=== PATIENT | female | born 2000 | race African-American/Black ===

== ENCOUNTER 2025-03-22 16:06 | Emergency (ER) | payer SELFPAY ==
--- NOTE | 2025-03-22 16:18 | W.ED.GENAD ---
Discharge Plan Disposition Patient Disposition: Home Discharge Details Clinical Impression: Exposure to body fluid due to accidental hypodermic needlestick injury Primary Care Provider: Unknown,Unknown ED Provider: Kapil Oconnell Home Meds and New Rx's Prescriptions: No Action No Known Home Meds Discharge Instructions Instructions: Blood or body fluid exposure, Post-Exposure Prophylaxis Additional Instructions: As discussed, please follow-up with your office's [facility] administrator as they may have a dedicated protocol for needlestick injuries. However, you may follow-up with your primary care provider or our [facility] medical office to receive the results of your blood work, and to further discuss whether prophylaxis is indicated. Please return to the emergency department if you are unable to establish follow-up care, or you develop any other new or concerning symptoms such as fever, worsening pain, or rash. Stand Alone Forms: Portal Information Referrals: [facility] [Provider Group] - 2 days Discharge Data Discharge Date/Time-TO BE ENTERED AT DEPARTURE: 03/22/25 16:44 HPI General Date/Time Provider Initiated Documentation: 03/22/25 16:13. 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. No acute complaints. Patient reports that the patient that she was exposed to has had blood drawn sent to the lab already. Will obtain screening labs for HIV, hepatitis panel, and baseline metabolic function. Patient instructed to follow-up with [facility]PCP as well as her technical administrative assistant on Monday morning. Disposition: Home HPI: 24-year-old female presents for evaluation after an accidental needlestick during patient care. 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 She denies any current symptoms, denies any significant past medical history. ROS: Negative besides as mentioned above Exam: Gen: A&O NAD HEENT: NCAT, EOMI, not icteric. External ears normal. No rhinorrhea. Moist mucous membranes. Neck: Supple, full range of motion, no observable masses, No meningeal sign. Lungs: No Respiratory distress. CV: RRR, no edema. Abdomen: Soft, nondistended, No rebound tenderness. MSK: No joint swelling, no redness. Skin: No rashes, petechiae, lesions. Normal color per patient. Neuro: Normal Gait, Grossly intact. Psych: Appropriate for situation. Related Data Home Medications Medication Instructions Recorded Confirmed Unknown [No Known Home Meds] 03/22/25 03/22/25 Allergies Allergy/AdvReac Type Severity Reaction Status Date / Time No Known Allergies Allergy Unverified 03/22/25 16:22 [facility] All Active Problems (Updated 03/22/25 @ 16:33 by Kapil Oconnell MD) Exposure to body fluid due to accidental hypodermic needlestick injury (Acute) Social History Smoking/Tobacco Use Status: Never Smoking risk assessment performed?: Yes Alcohol Intake: never Substance use type: does not use
[2025-03-22 16:24] VITALS: BP 132/93; PULSE 102; RESP 14; TEMP 36.9; O2SAT 99
[2025-03-22 17:06] LABS: ALT 12 U/L (10-49); AST 17 U/L (<34); Albumin 4.6 g/dL (3.4-5.0); Alkaline Phosphatase 57 U/L (46-116); Anion Gap 8.6 mmol/L (3-11); BUN 9 mg/dL (9-23); Bilirubin, Total 1.10 mg/dL (0.2-1.2); CO2 26.4 mmol/L (20.0-31.0); Calcium 9.1 mg/dL (8.3-10.6); Chloride 104 mmol/L (98-107); Glucose 73 mg/dL (74-106); Potassium 3.6 mmol/L (3.5-5.1); Sodium 139 mmol/L (136-145); Total Protein 7.6 g/dL (5.7-8.2)
[2025-03-24 09:45] LABS: HIV-1/2 Ag & Ab Screen Negative (Negative)
[2025-03-24 10:18] LABS: Hepatitis C Ab w Rflx HCV PCR Negative (Negative)
[2025-03-24 18:02] LABS: HBe Antibody Negative (Negative)
== END 2025-03-22 16:44 | disposition home or self-care (01) ==
LOC: ER 16:34
PROVIDERS: Emergency Provider General Practice
DX: S61.230A Puncture wound without foreign body of right index finger without damage to nail, initial encounter (principal); Y99.0 Civilian activity done for income or pay; W46.1XXA Contact with contaminated hypodermic needle, initial encounter
CPT/HCPCS: 99283; 99282; 80053; 86803; 87340; 87389; 86707